=== PATIENT | female | born 1995 | race Caucasian/White ===

== ENCOUNTER 2017-08-12 18:50 | Inpatient (IN) | payer BC, OTHER ==
[~2017-08-12] VITALS: Ht 167.6 cm; Wt 53.6 kg
[~2017-08-12 18:50] MED LIST: BCPILLS PO; DEXM20CA PO
[2017-08-12 18:54] VITALS: O2SAT 97
[2017-08-12] MEDS ORDERED: DEXM1CAP PO (19:17)
[2017-08-12] MEDS ORDERED: ANTIDEPRESSANT PO (19:17)
[2017-08-12] MEDS ORDERED: DEXM5TAB PO (19:17)
[2017-08-12] MEDS ORDERED: ALPR1TAB3 PO (19:17)
[2017-08-12 19:53] LABS: HEMATOCRIT 42.9 % (37-47); MEAN CELL VOLUME 93.9 fL (80-100); MEAN CORPUSCULAR HEMOGLOBIN 31.3 pg (25-34); MEAN CORPUSCULAR HGB CONC 33.3 g/dl (32-36); MEAN PLATELET VOLUME 11.4 fL (7.4-10.4); PLATELET COUNT 239 K/uL (130-400); RED BLOOD COUNT 4.57 M/uL (4.2-5.4)
[2017-08-12 20:19] LABS: BUN/CREATININE RATIO 17.6 (10-20); CREATININE 0.88 mg/dl (0.60-1.20); POTASSIUM 3.5 mmol/L (3.5-5.1)
[2017-08-12 20:30] LABS: ACETAMINOPHEN < 2 ug/ml (10-30)
[2017-08-12 20:32] LABS: THYROID STIMULATING HORMONE 1.24 uIu/ml (0.300-4.500)
[2017-08-12 21:16] LABS: BENZODIAZEPINE, URINE POS (NEG); COCAINE,URINE NEG (NEG); PHENCYCLIDINE, URINE NEG (NEG)
[2017-08-12] MEDS ORDERED: LORAZEPAM 2 MG/ML 1 ML VIAL IM STA (21:18)
[2017-08-12] MEDS ORDERED: HALOPERIDOL LACTATE 5 MG/ML 1 ML VIAL IM STA (21:18)
--- NOTE | 2017-08-12 22:02 | EMERGENCY ROOM VISIT NOTE ---
History Report prepared by Bob: Aarti Keller Under the Supervision of: Dr. Pedro Daugherty M.D. First contact with patient: 18:59 Chief Complaint: MENTAL HEALTH EVALUATION Stated Complaint: SUICIDAL, DEPRESSION History of Present Illness The patient is a 22 year old female who presents to the Emergency Room for a mental health evaluation. Per the patient's roommates, she has been suffering from depression and told one of them that she tried to kill herself today. She reports that she tried cutting her ankle. Her friends note that she has been using marijuana more than normal. They report that they made her call [facility]. They report that she said she was going to come here for help, but refused to let anyone drive her. They report she called an [employer] and the one friend just jumped in with her to make sure she came here. They report that she has been rude which is abnormal for her. They describe her as looking like a "mummy." They note that they have notified her parents and they are on their way. They report that she told them she would rather kill herself than tell her parents. They note that she has been struggling with the of her sister from 5 years ago recently. They note that they believe she has an eating disorder. The patient states that she has been depressed and has been ongoing. She reports that she was on several different antidepressants till a week ago when she changed medications. She reports that she doesn't remember what it is called. She was previously on Lexapro but states that it didn't work. The patient states that she does not see a counselor here or where she is from because she doesn't like therapy. The patient states that she has had thoughts of hurting herself since the summer due to an incident that is "too complicated to talk about." She reports that she cut her ankles today with scissors to hurt herself. The patient reports that she has a prescription for Xanax and took two today. She denies drinking any alcohol. She reports that she has smoked marijuana and recently stopped doing cocaine. She states that she smokes marijuana daily. The patient denies fever, vomiting, chance of , abdominal pain, and chest pain. Source of History: patient, friend Onset: today Position: other (global) Quality: other (global) Timing: constant Associated Symptoms: No fevers, No chest pain, No vomiting, No abdominal pain Note: The patient complains of depression. Review of Systems See HPI for pertinent positives & negatives. A total of 10 systems reviewed and were otherwise negative. Past Medical & Surgical Medical Problems: (1) Depression (2) History of nasal surgery (3) Kidney stones Surgical Problems: (1) History of foot surgery Family History FH: cancer FH: hypertension FH: kidney disease Social History Smoking Status: Never Smoker Alcohol Use: none Drug Use: marijuana Marital Status: single Housing Status: lives with roommate Occupation Status: [employer] student Current/Historical Medications Scheduled Control Pills ( Control Pills), 1 TAB PO DAILY Dexmethylphenidate Hcl (Focalin Xr), 25 MG PO QAM [Antidepressant], 1 TAB PO QAM Scheduled PRN Alprazolam (Xanax), 1 MG PO Q6H PRN for Anxiety Dexmethylphenidate Hcl (Focalin), 5 MG PO DAILY PRN for PRN Allergies Coded Allergies: No Known Allergies (Unverified , 08/12/17) Physical Exam Vital Signs Date Time Temp Pulse Resp B/P (MAP) Pulse Ox O2 Delivery O2 Flow Rate FiO2 08/12/17 18:54 36.7 100 20 124/86 97 Room Air Physical Exam Constitutional: Vital signs reviewed. Eyes: Pupils are equal round reactive to light. Conjunctiva are noninjected. ENT: Pharynx is clear without erythema or exudate. Mucous membranes are moist. Neck supple without meningeal signs. Respiratory: Clear to auscultation bilaterally. Breath sounds are equal bilaterally. Cardiovascular: Regular rate and rhythm. No rubs or gallops. GI: Soft, nondistended and nontender. Bowel sounds are present. Musculoskeletal: No peripheral edema. Has four horizontal superficial lacerations to the left medial ankle. No bleeding or signs of infection. Integumentary: No cyanosis. Neurological: The patient is awake and alert. No focal deficits. Psychiatric: Guarded affect. Medical Decision & Procedures Laboratory Results 08/12/17 19:31 08/12/17 19:31 Test 08/12/17 19:31 08/12/17 20:30 Red Blood Count 4.57 M/uL (4.2-5.4) Mean Corpuscular Volume 93.9 fL (80-100) Mean Corpuscular Hemoglobin 31.3 pg (25-34) Mean Corpuscular Hemoglobin Concent 33.3 g/dl (32-36) RDW Standard Deviation 41.5 fL (36.4-46.3) RDW Coefficient of Variation 12.2 % (11.5-14.5) Mean Platelet Volume 11.4 fL (7.4-10.4) Anion Gap 6.0 mmol/L (3-11) Est Creatinine Clear Calc Drug Dose 86.7 ml/min Estimated GFR () 108.9 Estimated GFR (Non- 93.9 BUN/Creatinine Ratio 17.6 (10-20) Calcium Level 9.0 mg/dl (8.5-10.1) Total Bilirubin 0.4 mg/dl (0.2-1) Direct Bilirubin 0.1 mg/dl (0-0.2) Aspartate Amino Transf (AST/SGOT) 29 U/L (15-37) Alanine Aminotransferase (ALT/SGPT) 25 U/L (12-78) Alkaline Phosphatase 41 U/L (45-117) Total Protein 7.5 gm/dl (6.4-8.2) Albumin 4.2 gm/dl (3.4-5.0) Thyroid Stimulating Hormone (TSH) 1.240 uIu/ml (0.300-4.500) Salicylates Level < 1.7 mg/dl (2.8-20) Acetaminophen Level < 2 ug/ml (10-30) Ethyl Alcohol mg/dL < 3.0 mg/dl (0-3) Urine Test NEG (NEG) Urine Opiates Screen NEG (NEG) Urine Methadone, Qualitative NEG (NEG) Urine Barbiturates NEG (NEG) Urine Phencyclidine (PCP) Level NEG (NEG) Ur Amphetamine/Methamphetamine NEG (NEG) MDMA (Ecstasy) Screen POS (NEG) Urine Benzodiazepines Screen POS (NEG) Urine Cocaine Metabolite NEG (NEG) Urine Marijuana (THC) POS (NEG) Laboratory results as reviewed by me. Medications Administered Medications (Trade) Dose Ordered Sig/Marcelina Route Start Time Stop Time Status Last Admin Dose Admin Hydroxyzine HCl (Vistaril Tab) 25 mg NOW STAT PO 08/13/17 00:42 08/13/17 00:43 DC 08/13/17 00:42 25 MG ED Course 1901: The patient was evaluated in room A8. A complete history and physical exam was performed. 2121: The patient was becoming agitated, but after talking to a nurse, was able to calm down. 2210: I reevaluated the patient and she is visibly upset. She is not willing to engage. [facility] is here to assess her. 2347: [address] [place] [address] is evaluating the patient now. 0042: Ordered Vistaril Tab 25 mg PO. 0043: The patient was accepted to [facility] and asked that I give the patient Vistaril to help her sleep. Medical Decision This is a 22-year-old female who presents for mental health evaluation. I did perform a limited focused review of portions of the patient's old chart on the electronic medical record. The patient has had no recent pertinent visits to this hospital. I did evaluate the patient as noted above. She is presenting with increased depression and suicidal ideation. She admits to cutting her left ankle today in an attempt to hurt herself. I did order and review the patient's blood work as noted in the electronic medical record. The patient was medically cleared. She is evaluated by [facility] help and S. She was admitted voluntarily to [facility]. She was given Vistaril to help her sleep tonight. Medication Reconcilliation Current Medication List: was personally reviewed by me Blood Pressure Screening Patient's blood pressure: Elevated blood pressure Blood pressure disposition: Elevated BP felt to be situational Impression Primary Impression: Mood disorder Additional Impressions: Suicidal ideation Self-harm Scribe Attestation The scribe's documentation has been prepared under my direct and personally reviewed by me in its entirety. I confirm that the note above accurately reflects all work, treatment, procedures, and medical decision making performed by me. Departure Information Dispostion Mental Health Acute Care Referrals No Doctor, Assigned (PCP) Forms HOME CARE DOCUMENTATION FORM, IMPORTANT VISIT INFORMATION Patient Instructions My [facility] Problem Qualifiers
[2017-08-13] MEDS ORDERED: hydrOXYzine HCL 25 MG TAB PO STA (00:42)
[2017-08-13] MEDS ORDERED: NURSING VERBAL MED ORDER ONE ×3 (01:00→21:45)
[2017-08-13] MEDS ORDERED: BISMUTH SUBSALICYLATE PER ML OMNICELL CHARGE PO PRN (01:15)
[2017-08-13] MEDS ORDERED: SODIUM CHLORIDE 0.65% NA SOLN 45 ML (OCEAN) PRN (01:15)
[2017-08-13] MEDS ORDERED: ACETAMINOPHEN 325 MG TAB PO PRN (01:15)
[2017-08-13] MEDS ORDERED: MAGNESIUM HYDROXIDE SUSP 30 ML UDC PO PRN (01:15)
[2017-08-13] MEDS ORDERED: ALUMINUM/MAGNESIUM SUSP 30 ML UDC PO PRN (01:15)
[2017-08-13] MEDS ORDERED: hydrOXYzine HCL 25 MG TAB PO PRN ×2 (01:15→22:15)
[2017-08-13 01:25] VITALS: BP 124/86; PULSE 82; TEMP 36.7; Ht 167.6 cm; Wt 53.6 kg
[2017-08-13] MEDS: hydrOXYzine HCL 25 MG TAB PO PRN ×3 (02:05→21:38)
[2017-08-13] MEDS ORDERED: BUPRTAB51 PO (04:26)
[2017-08-13 07:01] VITALS: BP 124/86; TEMP 36.7
[2017-08-13] MEDS ORDERED: BuPROPion XL 150 MG TABCR PO SCH (09:00)
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
[2017-08-14 06:59] VITALS: BP_SYST 111; BP_SYST 112; BP_DIAS 71; BP_DIAS 74; PULSE 48; PULSE 55; TEMP 36.9
[2017-08-14] MEDS: BuPROPion XL 300 MG TABCR PO SCH (09:30)
--- NOTE | 2017-08-14 13:12 | Psychiatric Progress Notes ---
Progress Note Date of Service Aug 14, 2017. Interval History 22-year-old woman admitted to our unit voluntarily with severe depression and suicidal ideation having cut her left ankle. Chief Complaint "Tired.". Subjective Patient was seen & assessed interval progress reviewed with Treatment Team. The patient remains unhappy about being on the unit. she is insisting that she wants nothing to do with other people's problems, doesn't want to discuss hers with others, and wants out of here as soon as possible. She is barely eating here and says its because the food is "disgusting" but claims to be eating food brought in by her mother (not witnessed by staff). She insists that she does not have an eating disorder, but is eating little "because I'm here". I review information from her previous therapist and previous physician, both of who believed she had an eating disorder, to which I get a petulant look and a non response. She says that her mood is "anxious because I'm here". I attempt to have a discussion with her about coping strategies, healthy versus unhealthy, and to keep her mind open to new ideas. I have asked her to talk about what goes on in her head and how that plays out in her behaviors. She says that she did not sleep last night despite multiple doses of vistaril. She denies any thoughts of self harm. She intends to finish her semester here at [employer] and has signed HEATHER's to contact the Office of Student Care and Advocacy. Review of Systems Constitutional: + fatigue ENT: No hearing loss, No unusual epistaxis, No nasal symptoms, No sore throat, No tinnitus, No dental problems, No trouble swallowing, No problem reported Respiratory: No cough, No sputum, No wheezing, No shortness of breath, No dyspnea on exertion, No dyspnea at rest, No hemoptysis, No problem reported Cardiovascular: No chest pain, No orthopnea, No PND, No edema, No claudication , No palpitations, No problem reported Abdomen: + problem reported (restricting) Musculoskeletal: No joint pain, No muscle pain, No swelling, No calf pain, No problem reported Psychiatric: + anxiety, + insomnia Integumentary: No rash, No itch, No new/changing skin lesions, No color change , No bleeding, No problem reported Sleep Information Total Hours of Sleep: 4.75 Meal Information Percent of Breakfast Consumed: 0 Percent of Lunch Consumed: 0 Percent of Dinner Consumed: 25 Mental Status Exam During interview pt is: alert and oriented, uncooperative Appearance: appropriately groomed Eye contact is: fair Motor behavior is: steady gait & station, no abnormal motor movements Speech: normal in rate, rhythm & volume Affect: depressed, flat Mood is: irritable, anxious Thought process: goal directed Thought content: reality based without delusions Suicidal thought are: present, Plan: present (to cut) Homicidal thoughts are: denied Hallucinations: denies auditory, denies visual Cognition: memory grossly intact, attention grossly intact, language grossly intact Intelligence estimated to be: average Insight: impaired Judgement: impaired Summary of Past History 08/14. Reviewed records from Dr. Basilio who was apparently her specification writer. 3 notes were faxed, last from January 2016. Diagnosis ADHD inattentive type, anxiety disorder NOS. Has prescribed Focalin consistently, which she reported that she wasn't taking daily, but helpful to focus/concentration for exams. Also prescribed Xanax for anxiety. Noted an eating disorder after sister's , but was gaining weight. No formal treatment indicated. Impression The patient is angry and dismissive. She wants only to do those things that she wants to do, and is self limiting therapy. She is not eating well here, and continues to say she does not have an eating disorder, but past providers have both noted eating disorder. Since this is not the primary focus of this hospitalization, we will not use the LAKESHIA protocol, but will weigh daily as a means of monitoring. Clearly this will need to be addressed in treatment moving forward, as will her substance use, which she also does not see as a problem. She denies side effects to Wellbutrin XL 300 mg. daily, but again, will need to be alert to the impact to her appetite/weight. Mother has been speaking with staff and appears to be codependent with her daughter. Plan (1) Major depressive disorder, recurrent severe without psychotic features 08/13 -Increase Wellbutrin XL to 300 mg daily but with caution as the patient is weight focused. If further weight loss, consider alternate agent - Family meeting with parents today - Will need psychiatric follow-up - Every 15 minute checks for safety - Encourage participation in group and individual counseling - Monitor by mouth intake - Obtain records from previous psychiatric providers - Assist the patient to learn and utilize additional healthy coping strategies 08/14 - Continue current meds - Add Trazodone 50 mg. HS for insomnia (2) ADHD 08/13 - Per patient report although no longer sees Dr. Basilio who prescribed Focalin and Xanax. Will obtain outpatient records - Hold Focalin while inpatient to assess her anxiety off of stimulants (3) Cannabis use disorder, mild, abuse 08/13 - Recommend abstaining (4) Anorexia nervosa without bulimia 08/14 - Patient will not engage in discussion about this. - Will attempt to weigh daily to monitor - Will need to be addressed in therapy group home Has been reviewed with Dr. Lizz Lai Discharge / Aftercare Planning Primary Care Physician: Name: Dr. Richard Reyes Therapist: Name: Dr. Marilin Rojas Design Analyst: Name: n/a Visit Code E&M Code: 76747 Inventory Assets Strengths: Desire to finish school, support from parents Needs: To abstain from cannabis Risk Factors Assessment : Yes /single/: Yes Higher / Fall in social status: No Health problems: No Mental Health Diagnoses: Yes Substance use disorders: Yes Previous attempt: No Family history of suicide: No Previous psychiatric stay: No Smoker: No Protective Factors Assessment Hinduism beliefs: Yes : No Responsible for young children: No Employed: No Supportive family: Yes Data Vital Signs Last 24 Hrs: Date Time Temp Pulse Resp B/P (MAP) Pulse Ox O2 Delivery O2 Flow Rate FiO2 08/14/17 06:59 36.9 48 16 112/71 55 111/74 Meds Administered Last 24 Hrs: Meds Administered (Past 24Hrs) Medications (Trade) Dose Ordered Sig/Marcelina Route Start Time Stop Time Status Last Admin Dose Admin Hydroxyzine HCl (Vistaril Tab) 25 mg NOW STAT PO 08/13/17 00:42 08/13/17 00:43 DC 08/13/17 00:42 25 MG Hydroxyzine HCl (Vistaril Tab) 50 mg HSZ PRN PO 08/13/17 01:15 09/12/17 01:14 08/13/17 21:38 50 MG Hydroxyzine HCl (Vistaril Tab) 25 mg Q4H PRN PO 08/13/17 01:15 09/12/17 01:14 08/13/17 02:44 25 MG Bupropion HCl (Wellbutrin-Xl Tab) 150 mg DAILY PO 08/13/17 09:00 08/13/17 10:50 DC 08/13/17 09:10 150 MG Bupropion HCl (Wellbutrin-Xl Tab) 300 mg QAM PO 08/14/17 09:00 09/13/17 08:59 08/14/17 09:30 300 MG Hydroxyzine HCl (Vistaril Tab) 50 mg HSZ PRN PO 08/13/17 22:15 08/14/17 09:00 DC 08/13/17 22:44 50 MG Lab Results Last 24 Hrs: 08/12/17 19:31 08/12/17 19:31 Test 08/12/17 19:31 08/12/17 20:30 Red Blood Count 4.57 M/uL (4.2-5.4) Mean Corpuscular Volume 93.9 fL (80-100) Mean Corpuscular Hemoglobin 31.3 pg (25-34) Mean Corpuscular Hemoglobin Concent 33.3 g/dl (32-36) RDW Standard Deviation 41.5 fL (36.4-46.3) RDW Coefficient of Variation 12.2 % (11.5-14.5) Mean Platelet Volume 11.4 fL (7.4-10.4) Anion Gap 6.0 mmol/L (3-11) Est Creatinine Clear Calc Drug Dose 86.7 ml/min Estimated GFR () 108.9 Estimated GFR (Non- 93.9 BUN/Creatinine Ratio 17.6 (10-20) Calcium Level 9.0 mg/dl (8.5-10.1) Total Bilirubin 0.4 mg/dl (0.2-1) Direct Bilirubin 0.1 mg/dl (0-0.2) Aspartate Amino Transf (AST/SGOT) 29 U/L (15-37) Alanine Aminotransferase (ALT/SGPT) 25 U/L (12-78) Alkaline Phosphatase 41 U/L (45-117) Total Protein 7.5 gm/dl (6.4-8.2) Albumin 4.2 gm/dl (3.4-5.0) Thyroid Stimulating Hormone (TSH) 1.240 uIu/ml (0.300-4.500) Salicylates Level < 1.7 mg/dl (2.8-20) Acetaminophen Level < 2 ug/ml (10-30) Ethyl Alcohol mg/dL < 3.0 mg/dl (0-3) Urine Test NEG (NEG) Urine Opiates Screen NEG (NEG) Urine Methadone, Qualitative NEG (NEG) Urine Barbiturates NEG (NEG) Urine Phencyclidine (PCP) Level NEG (NEG) Ur Amphetamine/Methamphetamine NEG (NEG) MDMA (Ecstasy) Screen POS (NEG) Urine Benzodiazepines Screen POS (NEG) Urine Cocaine Metabolite NEG (NEG) Urine Marijuana (THC) POS (NEG)
[2017-08-14] MEDS ORDERED: TRAZODONE HCL 50 MG TAB PO SCH (22:00)
[2017-08-14] MEDS: hydrOXYzine HCL 25 MG TAB PO PRN (23:07)
[2017-08-15 08:56] VITALS: BP_SYST 102; BP_SYST 106; BP_DIAS 69; BP_DIAS 75; PULSE 65; PULSE 92; TEMP 36.8
[2017-08-15] MEDS: BuPROPion XL 300 MG TABCR PO SCH (09:13)
[2017-08-15] MEDS ORDERED: BUPRTAB51 PO (13:59)
[2017-08-15] MEDS ORDERED: DSY50 PO (13:59)
--- NOTE | 2017-08-15 14:07 | Discharge Instructions ---
Discharge Information Report Includes Report will include the: Discharge Instructions & Summary Admission Admission Date / Time: Aug 13, 2017 at 00:51 Reason for Admission: Major Depressive Disorder Discharge Discharge Diagnosis / Problem: Depression, cannabis abuse, eating disorder Condition at Discharge: Good Discharge Goals Goal(s): Decrease discomfort, Improve disease control Activity Recommendations Activity Limitations: resume your previous activity . Instructions / Follow-Up Instructions / Follow-Up . SPECIAL CARE INSTRUCTIONS: 1. Follow through with your scheduled aftercare appointments. If unable to keep an appointment, please call to reschedule. 2. Take your medication only as prescribed. Medication should not be changed or stopped without the approval of your doctor. In the event of worsening symptoms or concerns about side effects, contact your doctor immediately. 3. Utilize new healthy coping skills, anger management skills, and stress management skills learned during your hospitalization. Journal feelings and process them with a support person. Identify stressors or situations that may result in relapse, deterioration or inappropriate behaviors and develop a plan to deal with those issues. 4. If your coping skills are ineffective and you are in crisis, contact your outpatient providers for direction. If unable to reach your providers, please call the CAN HELP LINE AT or go to the closest Emergency Room. 5. Avoid alcohol and un-prescribed drugs. 6. You have been provided with the Mental Health Advance Directives Pamphlet for your review. AFTERCARE APPOINTMENTS: * Please call your insurance company prior to your scheduled appointment to confirm your aftercare providers are covered. Take your insurance information to your appointments. . Discharge / Aftercare Planning Primary Care Physician: Name: Dr. Richard Reyes Psychiatrist: Name: Jonathan Edwards Date of Appointment: Sep 23, 2017 Time of Appointment: 9:20 am Therapist: Name Of Therapist: [facility] Date of Appointment: Aug 19, 2017 Time of Appointment: 1:15 pm Appointment Comments: Treatment Center in [place] Tele Rn: Name: n/a . Follow-Up Care Plan for Follow-Up Care: Mother has established psychiatric care at home and patient will be returning there tomorrow Current Hospital Diet Patient's current hospital diet: Regular Diet Discharge Diet Recommended Diet: Regular Diet Procedures Procedures Performed: No Pending Studies Pending Studies at Discharge: No Medical Emergencies . Who to Call and When: Medical Emergencies: For questions or emergencies related to your hospital stay, please contact the Inpatient Behavioral Health Unit at [phone]. A value stream manager is on-call 31/03 for the Behavioral Health Unit for emergencies At any time you feel your situation is an emergency, you may also call 911 immediately. . Non-Emergent Contact Non-Emergency issues call your: Psychiatrist, Therapist Past History Medical & Surgical History: (1) IBS (irritable bowel syndrome) Advance Directives Existing Advance Directive: No Do You Have an Existing Mental: No Existing Living Will: No Existing Power of Travel Clerk: No Advance Directives Info Given: To Pt/S.O. Advance Directives Reason: Declines as Mental Health Visit. Discharge Summary Admission HPI Per the Admitting provider: The patient is a 22-year-old woman who is a senior at [employer], who reports that she has had multiple stressful events in her life leading to her feeling acutely depressed. Although she is reluctant to give extensive details, she tells me that she had an older sister who 6 years ago after falling off of a mitzi. She says her entire family is messed up since then. She admits that she had an increase in anxiety and panic attacks after her sister's and was depressed, having seen a psychiatrist and was on 2 separate anti-depressant trials. She does not remember why she stopped them but repeatedly describes herself as "just not happy". She is not excelling in school with current GPA of 2.9, saying that she has never done well academically. In February of this year, she had been with a boyfriend for 3 years and found out abruptly that he had been seeing someone else. This was a huge stress, she ceased talking with him and they were no longer together. 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 While abroad she was able to distract herself and the impact of that relationship ending was not as apparent but since having returned to school, she is thinking about it more. He lives to floors above her in the dorm and some of his friends have been making negative comments to her. She has been having suicidal thoughts and last evening cut her left ankle multiple times. She told her friend Ruma who encouraged her to call. After speaking with them they want her to come to the emergency room for evaluation. Apparently in the emergency room, she was unhappy about not being able to leave and being told she would be hospitalized. She says she had not anticipated this and didn't know what was going to happen. Apparently at one point she simply said she was leaving and attempted to push the door open to go but was talked down by the ER staff. She then agreed to come in and says she's not happy about it but says she has accepted it knowing that she needs treatment for her depression. At the time I see the patient she is just gotten out of bed. She is somewhat sullen in the interview, avoiding eye contact and restricting her comments. She becomes more comfortable as the interview progresses. She indicates that her sleep is generally difficult and takes a Xanax and smokes marijuana to sleep. Her appetite has been "normal" but reports that she's lost 15 pounds since returning from [place] where she claims to have put on weight. She admits to having problems with eating saying she doesn't like to eat, avoids anything that will put weight on her but does not like for people to think she has a formal eating disorder. She denies purging, abuse of laxatives. She reports relatively chronic anxiety following the of her sister. She did have panic attacks but they are not so prominent now. She feels angry at times but denies that this anger leads her to get into fights or other behavioral problems. Her energy is "fine". Her focus and concentration are good when she takes Focalin which was prescribed by a Dr. Basilio who she describes as a pediatric psychiatrist, who she no longer sees. She is not necessarily happy about being in the hospital saying that she is missing meetings for the completion of group projects that are all due on Friday, the end of the semester. She denies any previous cutting behaviors and admits that last night' s cutting on her ankle was with the intent of suicide. She denies any discrete episodes of euphoric mood, sleeplessness or pleasure seeking behaviors that would be congruent with a bipolar disorder. Hospital Course (1) Major depressive disorder, recurrent severe without psychotic features 08/13 -Increase Wellbutrin XL to 300 mg daily but with caution as the patient is weight focused. If further weight loss, consider alternate agent - Family meeting with parents today - Will need psychiatric follow-up - Every 15 minute checks for safety - Encourage participation in group and individual counseling - Monitor by mouth intake - Obtain records from previous psychiatric providers - Assist the patient to learn and utilize additional healthy coping strategies 08/14 - Continue current meds - Add Trazodone 50 mg. HS for insomnia (2) ADHD 08/13 - Per patient report although no longer sees Dr. Basilio who prescribed Focalin and Xanax. Will obtain outpatient records - Hold Focalin while inpatient to assess her anxiety off of stimulants (3) Cannabis use disorder, mild, abuse 08/13 - Recommend abstaining (4) Anorexia nervosa without bulimia 08/14 - Patient will not engage in discussion about this. - Will attempt to weigh daily to monitor - Will need to be addressed in therapy manager long term care Risk Factors Assessment : Yes /single/: Yes Higher / Fall in social status: No Health problems: No Mental Health Diagnoses: Yes Substance use disorders: Yes Previous attempt: No Family history of suicide: No Previous psychiatric stay: No Smoker: No Protective Factors Assessment Episcopal beliefs: Yes : No Responsible for young children: No Employed: No Supportive family: Yes Day of Discharge Assessment COURSE OF HOSPITALIZATION: The patient has had a very short 2 day stay on our unit. She was admitted because of suicidal ideation having cut her ankle several times. She has several stressors going on including the of her sister by next fall from a mitzi 5 years ago, and a traumatic breakup with a boyfriend for the summer. She had already been on Wellbutrin XL 150 mg daily prior to admission and during her status was increased to 300 mg daily although with some concern that it will reduce her appetite. She has a clear anorexia with out purging but she did not want to acknowledge this. She wanted to see herself as a healthy eater but clearly restricts her food with current BMI of 18.9. Outpatient records were obtained and reviewed, both her previous therapist and her dampener identified an eating disorder and her therapist further identified substance use issue which the patient was not willing to acknowledge either. She had been smoking marijuana daily and admitted to a more remote history of cocaine abuse. Her parents were involved in treatment having come to town on the night of admission. His a difficult family dynamic with father being passive and mother being aggressive. Mother required a lot of input from staff to explain repeatedly the treatment approach and the purpose of groups. The patient herself was entitled, not wanting a roommate, refusing to talk with other peers she did not want to know her problems. We recommended abstinence from all substances including alcohol and cannabis and she did agree to do so moving forward. She insisted on discharge from the moment she got to the unit although never did submit a 72 hour notice. Her mother to felt that she would be okay for discharge in view of the fact that mother was taking her home. Mother was able to arrange for psychiatric care in their home town. She will pick her up, remained with her until they are able to return home tomorrow. The patient repeatedly denied the cutting on her ankle was a clear suicide attempt although did admit to having suicidal thoughts. She denied any suicidal thoughts throughout her stay. Overall, there is concern that the patient continues to minimize her symptoms, wanting to avoid dealing with her eating disorder, substance abuse anxiety and depression. I verbalize this to her and encouraged her to think about this that the only person she was hurting by not dealing with it was her. DAY OF DISCHARGE ASSESSMENT: Today the patient is requesting discharge. Her aftercare has been established, her mother is here and will remain with her. She has denied any further suicidal ideation, any further self-injurious behaviors and so we will proceed with discharge. Today she is casually and appropriately dressed and groomed. She makes good eye contact. She plays with her hair in a very childlike manner. Gait and station are within normal limits. Affect is restricted. Speech is of normal rate volume and tone. Thoughts are organized, goal-directed, and without evidence of thought disorder. Recent and remote memory are intact per conversation. Intelligence is estimated to be average. Insight and judgment are limited but improving. Laboratory Test 08/12/17 19:31 08/12/17 20:30 White Blood Count 5.30 Red Blood Count 4.57 Hemoglobin 14.3 Hematocrit 42.9 Mean Corpuscular Volume 93.9 Mean Corpuscular Hemoglobin 31.3 Mean Corpuscular Hemoglobin Concent 33.3 RDW Standard Deviation 41.5 RDW Coefficient of Variation 12.2 Platelet Count 239 Mean Platelet Volume 11.4 Sodium Level 137 Potassium Level 3.5 Chloride Level 105 Carbon Dioxide Level 26 Anion Gap 6.0 Blood Urea Nitrogen 16 Creatinine 0.88 Est Creatinine Clear Calc Drug Dose 86.7 Estimated GFR () 108.9 Estimated GFR (Non- 93.9 BUN/Creatinine Ratio 17.6 Random Glucose 86 Calcium Level 9.0 Total Bilirubin 0.4 Direct Bilirubin 0.1 Aspartate Amino Transferase (AST) 29 Alanine Aminotransferase (ALT) 25 Alkaline Phosphatase 41 Total Protein 7.5 Albumin 4.2 Thyroid Stimulating Hormone (TSH) 1.240 Salicylates Level < 1.7 Acetaminophen Level < 2 Ethyl Alcohol mg/dL < 3.0 Urine Test NEG Urine Opiates Screen NEG Urine Methadone, Qualitative NEG Urine Barbiturates NEG Urine Phencyclidine (PCP) Level NEG Ur Amphetamine/Methamphetamine NEG Urine MDE-amphetamine (MDEA) Pending Ur Methylenedioxyamphetamine (MDA) Pending MDMA (Ecstasy) Screen POS Methylenedioxymethamphetamine (MDMA Pending Urine Hydroxyalprazolam Confirm Pending Urine Benzodiazepines Screen POS 7-Amino Clonazepam Level Pending Urine Nordiazepam Confirmation Pending Urine Hydroxyethylflurazepam Level Pending Urine Lorazepam (GC/MS) Pending Urine Oxazepam Confirm (GC/MS) Pending Urine Temazepam Confirmation Pending Urine Hydroxytriazolam Confirmation Pending Urine Hydroxymidazolam Confirmation Pending Urine Cocaine Metabolite NEG Urine Marijuana (THC) POS Urine Marijuana (THC Carboxy Acid) Pending Total Time Total Time Spent (min): Greater than 30 minutes Total Time Included: examination of the patient, discharge planning, medication reconciliation, communication with other providers Tobacco Cessation at Discharge Smoking Status: Never Smoker FDA approved Prescription: non-smoker
[2017-08-15] MEDS ORDERED: DESTROY THIS MEDICATION ONE (14:15)
--- NOTE | 2017-08-15 15:14 | Psychiatric Progress Notes ---
Psychiatric Progress Note Date of Service Aug 15, 2017. Notes met with patient briefly, she was clearly denying SI and without evidence of psychosis that would impact her medical decision making. She was minimizing any ED symptoms, no evidence of purging on unit, confirmed PROCESS TECHNICIAN did review risks of seizure associated with Wellbutrin and that Remeron may ultimately be a better buttermilk drier operator option for patient. She had completed safety plan with staff. I agree that there is no indication for involuntary commitment at this time.
--- NOTE | 2017-08-15 17:12 | Psychiatric Progress Notes ---
Psychiatric Progress Note Date of Service Aug 15, 2017. Notes Request through staff for phone call from the undersigned. Mother wanting to talk about diagnosis and recommendations. Reviewed with mother, the same information reviewed with the patient during her stay including diagnosis of anorexia, substance a use (without details), depression, anxiety, and personality traits affecting her treatment here. Explained that she was safe for discharge, but than not much was accomplished here due to patient's resistance to engaging meaningfully in treatment. Mother was distressed feeling that she is being discharged too soon, and should be kept until she does accept treatment and further worrying that her daughter will continue her resistance after discharge, and not participate in treatment. Demanded a meeting with she, patient and the undersigned before she would be willing to take her home. I reflected to her that she previously had wanted her daughter discharged as soon as possible which she adamantly denied. I indicated that discharge could be cancelled if there was a change in circumstance, if her daughter was not safe, or was willing to remain and engage meaningfully. I said that I would contact the staff to see who could meet with them when she arrived. Spoke with Hali Marquez RN, who was aware of the situation. She and social worker health services Hank met with mother and patient when she arrived. Per Hali, the meeting went well, mother's concerns were assuaged, and she was ready to take her daughter home.
[2017-08-18 14:28] LABS: HYDROXYETHYLFLURAZEPAM CONF NEGATIVE NG/ML (CUTOFF=50); HYDROXYMIDAZOLAM NEGATIVE NG/ML (CUTOFF=50); HYDROXYTRIAZOLAM CONF NEGATIVE NG/ML (CUTOFF=50); TEMAZEPAM CONF NEGATIVE NG/ML (CUTOFF=50)
== END 2017-08-15 17:00 | disposition home or self-care (01) | DRG 885 ==
LOC: C.EDB 18:50 → C.MHU 08-13 00:51 → ENRESERV 08-13 00:55 → C.MHU 08-13 01:51
PROVIDERS: ADMIT Psychiatry & Neurology Child & Adolescent Psychiatry; ATTEND Psychiatry & Neurology Psychiatry
DX: F33.2 Major depressive disorder, recurrent severe without psychotic features (principal); R45.851 Suicidal ideations; F50.00 Anorexia nervosa, unspecified; Z68.1 Body mass index [BMI] 19.9 or less, adult; S91.012A Laceration without foreign body, left ankle, initial encounter; F90.9 Attention-deficit hyperactivity disorder, unspecified type; F12.10 Cannabis abuse, uncomplicated; Z79.899 Other long term (current) drug therapy; Z81.8 Family history of other mental and behavioral disorders; Z82.49 Family history of ischemic heart disease and other diseases of the circulatory system; X78.9XXA Intentional self-harm by unspecified sharp object, initial encounter; Y99.8 Other external cause status